=== PATIENT | male | born 1970 | race Hispanic/Latino ===

== ENCOUNTER 2019-06-15 20:20 | Emergency (ER) | payer OTHER ==
--- NOTE | 2019-06-15 21:58 | RAD ---
EXAM: CHEST ONE VIEW HISTORY: Cough and congestion for 2 days COMPARISON: 10/25/2015 FINDINGS: Single lead left subclavian AICD device remains in place. The cardiac silhouette remains mildly enlar ged. The pulmonary vasculature is within normal limits. The lungs are clear. The osseous structures are intact. IMPRESSION: 1. No acute cardiopulmonary process. 2. Cardiomegaly.
== END 2019-06-15 22:05 | disposition home or self-care (01) ==
LOC: ERS 20:20
DX: J06.9 Acute upper respiratory infection, unspecified (principal); E11.9 Type 2 diabetes mellitus without complications; I25.2 Old myocardial infarction; I11.0 Hypertensive heart disease with heart failure; I50.9 Heart failure, unspecified; Z87.891 Personal history of nicotine dependence; Z79.899 Other long term (current) drug therapy
CPT/HCPCS: 71045; 87804

== ENCOUNTER 2019-06-30 11:55 | Emergency (ER) | payer OTHER | END 2019-06-30 12:33 | disposition home or self-care (01) | LOC: ERS 11:55 | DX: K02.9 Dental caries, unspecified (principal); E11.9 Type 2 diabetes mellitus without complications; E78.00 Pure hypercholesterolemia, unspecified; I25.2 Old myocardial infarction; I11.0 Hypertensive heart disease with heart failure; I50.9 Heart failure, unspecified; I25.10 Atherosclerotic heart disease of native coronary artery without angina pectoris; F41.9 Anxiety disorder, unspecified; F32.9 Major depressive disorder, single episode, unspecified | CPT/HCPCS: 99282 ==

== ENCOUNTER 2019-12-12 09:30 | Emergency (ER) | payer OTHER ==
[2019-12-12] MEDS ORDERED: Cyclobenzaprine 10 MG TAB ONE (10:45)
[2019-12-12] MEDS ORDERED: HYDROcodone/Acetaminophen 5/325 mg Tablet ONE (10:45)
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
== END 2019-12-12 11:18 | disposition home or self-care (01) ==
LOC: ERS 09:30
DX: S39.012A Strain of muscle, fascia and tendon of lower back, initial encounter (principal); I25.10 Atherosclerotic heart disease of native coronary artery without angina pectoris; I11.0 Hypertensive heart disease with heart failure; I50.9 Heart failure, unspecified; E11.9 Type 2 diabetes mellitus without complications; F41.9 Anxiety disorder, unspecified; F32.9 Major depressive disorder, single episode, unspecified; I25.2 Old myocardial infarction; E78.5 Hyperlipidemia, unspecified; V89.2XXA Person injured in unspecified motor-vehicle accident, traffic, initial encounter
CPT/HCPCS: 72100

== ENCOUNTER 2020-01-05 12:02 | Emergency (ER) | payer OTHER | END 2020-01-05 12:35 | disposition home or self-care (01) | LOC: ERS 12:02 | DX: K08.89 Other specified disorders of teeth and supporting structures (principal); I25.10 Atherosclerotic heart disease of native coronary artery without angina pectoris; I11.0 Hypertensive heart disease with heart failure; I50.9 Heart failure, unspecified; I25.2 Old myocardial infarction; E11.9 Type 2 diabetes mellitus without complications; E78.5 Hyperlipidemia, unspecified; F41.9 Anxiety disorder, unspecified; F32.9 Major depressive disorder, single episode, unspecified | CPT/HCPCS: 99282 ==

== ENCOUNTER 2020-03-07 15:11 | Emergency (ER) | payer OTHER ==
--- NOTE | 2020-03-07 16:27 | RAD ---
CHEST ONE VIEW PORTABLE: 03/07/20 HISTORY: Cough. COMPARISON: 06/15/19. FINDINGS: Left ICD. Heart size is upper range of normal. Mild bilateral pleural thickening. No confluent pneumo daniel, overt edema or pleural effusion. IMPRESSION: No significant acute intrathoracic disease. Stable exam. POS: RRE
[2020-03-07 16:33] LABS: #Basophils 0.1 thou/uL (0.0-0.2); #Lymphocytes 1.3 thou/uL (1.20-3.40); #Monocytes 0.3 thou/uL (0.11-0.59); #Neutrophils 4.3 thou/uL (1.40-6.50); %Eosinophils 0.7 % (0.0-10.0); %Lymphocytes 21.2 % (21.0-51.0); %Monocytes 5.2 % (0.0-10.0); Mean Corpuscular HGB CONC 33.4 g/dL (32.0-36.0); Mean Corpuscular Hemoglobin 30.9 pg (27.0-31.0); Mean Corpuscular Volume 92.6 fL (78.0-98.0); Mean Platelet Volume 9.3 fL (7.4-10.4); Platelet Count 166 thou/uL (130-400); RBC Distribution Width 12.5 % (11.5-14.5); Red Blood Cell (RBC) Count 4.85 mill/uL (4.70-6.10)
[2020-03-07 16:55] LABS: ALT (SGPT) 22 U/L (8-55); AST (SGOT) 19 U/L (5-34); Albumin 3.4 g/dL (3.5-5.0); Alkaline Phosphatase 71 U/L (40-110); Anion Gap 12 mmol/L (10-20); BUN (Urea Nitrogen) 14 mg/dL (8.9-20.6); Bilirubin, Total 0.3 mg/dL (0.2-1.2); Calc. Creatinine Clearance 0 mL/min (70-130); Calcium 8.1 mg/dL (7.8-10.44); Carbon Dioxide 25 mmol/L (22-29); Chloride 102 mmol/L (98-107); Estimated GFR-MDRD 48; Globulin 2.9 g/dL (2.4-3.5); Glucose 515 mg/dL (70-105); Protein, Total 6.3 g/dL (6.0-8.3); Sodium 135 mmol/L (136-145)
[2020-03-08 12:17] LABS: SARS-CoV-2 MS2 Positive; SARS-CoV-2 N Gene Negative; SARS-CoV-2 S Gene Negative; SARS-CoV-2 by NAA Not Detected (NotDetected); SARS-CoV-2 orf1ab Negative
--- NOTE | 2020-03-10 13:41 | EKG ---
Test Reason : BODY ACHES Blood Pressure : / mmHG Vent. Rate : 069 BPM Atrial Rate : 069 BPM P-R Int : 168 ms QRS Dur : 098 ms QT Int : 450 ms P-R-T Axes : 036 -40 100 degrees QTc Int : 482 ms Normal sinus rhythm Possible Left atrial enlargement Left axis deviation Inferior infarct , age undetermined Anterior infarct , age undetermined Abnormal ECG Confirmed by TAYLOR NORRIS DO ([id number]), avid editor JEREMIAH HAMLIN ([id number] on 03/10/2020 1:41:02 PM Referred By: JR Confirmed By:TAYLOR NORRIS DO
== END 2020-03-07 18:43 | disposition home or self-care (01) ==
LOC: ERS 15:11
DX: B34.9 Viral infection, unspecified (principal); I11.0 Hypertensive heart disease with heart failure; I50.9 Heart failure, unspecified; I25.10 Atherosclerotic heart disease of native coronary artery without angina pectoris; I25.2 Old myocardial infarction; E78.5 Hyperlipidemia, unspecified; I10 Essential (primary) hypertension; F41.9 Anxiety disorder, unspecified; F32.9 Major depressive disorder, single episode, unspecified
CPT/HCPCS: 36415; 71045; 80053; 83880; 84484; 85025; 87635; 93005; U0003

== ENCOUNTER 2020-05-08 02:22 | Observation (INO) | payer OTHER ==
[2020-05-08 02:45] LABS: #Lymphocytes 0.6 thou/uL (1.20-3.40); #Monocytes 0.4 thou/uL (0.11-0.59); #Neutrophils 7.9 thou/uL (1.40-6.50); %Basophils 0.1 % (0.0-1.0); %Eosinophils 0.4 % (0.0-10.0); %Monocytes 4.8 % (0.0-10.0); %Neutrophils 87.8 % (42.0-75.0); Hemoglobin 14.9 g/dL (14.0-18.0); Mean Corpuscular HGB CONC 33.2 g/dL (32.0-36.0); Mean Corpuscular Hemoglobin 31.2 pg (27.0-31.0); Mean Corpuscular Volume 94.2 fL (78.0-98.0); Mean Platelet Volume 8.8 fL (7.4-10.4); Platelet Count 158 thou/uL (130-400); RBC Distribution Width 12.6 % (11.5-14.5); Red Blood Cell (RBC) Count 4.76 mill/uL (4.70-6.10)
[2020-05-08] MEDS ORDERED: Aspirin Chewable 81 MG TAB ONE (03:05)
[2020-05-08 03:12] LABS: ALT (SGPT) 19 U/L (8-55); AST (SGOT) 19 U/L (5-34); Albumin 3.3 g/dL (3.5-5.0); Alkaline Phosphatase 84 U/L (40-110); Anion Gap 14 mmol/L (10-20); BUN (Urea Nitrogen) 12 mg/dL (8.9-20.6); Bilirubin, Total 0.6 mg/dL (0.2-1.2); Calc. Creatinine Clearance 0 mL/min (70-130); Calcium 8.7 mg/dL (7.8-10.44); Carbon Dioxide 25 mmol/L (22-29); Chloride 100 mmol/L (98-107); Estimated GFR-MDRD 53; Globulin 3.5 g/dL (2.4-3.5); Glucose 491 mg/dL (70-105); Potassium 4.1 mmol/L (3.5-5.1); Protein, Total 6.8 g/dL (6.0-8.3); Sodium 135 mmol/L (136-145)
[2020-05-08] MEDS ORDERED: Nitroglycerin 0.4 MG TAB (25 Tab Bottle) SL PRN (05:57)
[2020-05-08 05:58] LABS: CKMB 1.6 ng/mL (0-6.6)
[2020-05-08] MEDS ORDERED: Dextrose 5% in Water 1,000 ML IV PRN (06:02)
[2020-05-08] MEDS ORDERED: HumaLOG 300 UNITS/3 ML VIAL SC PRN (06:02)
[2020-05-08] MEDS ORDERED: Dextrose 50% Abboject 50 ML SYRINGE SLOW IVP PRN (06:02)
--- NOTE | 2020-05-08 06:19 | PDOC.BPN ---
- Brief Progress Note [id number] HP
[2020-05-08 06:48] LABS: SARS-CoV-2 NAA Rapid Test Not Detected (NotDetected)
--- NOTE | 2020-05-08 06:51 | HP ---
CHIEF COMPLAINT: Chest pain. HISTORY OF PRESENT ILLNESS: Mr. Garay is a 49-year-old male with past medical history of coronary artery disease, cardiac stent, diabetes mellitus type 2, hypertension, congestive heart failure, AICD, among others, presents to the emergency room with chest pain, shortness of breath, generalized body aches, and subjective fever. The patient states that the symptoms started 2 to 3 days ago. Denies any exposure to COVID. He describes the chest pain as achy. He took [id number] medications without any relief. The patient has a history of heart failure, stents with pacemaker. He did not check his temperatures, but he felt like he has fevers. Denies abdominal pain. Denies diarrhea or urinary symptoms. He denies any worsening leg edema. He takes Lasix at home. He is diabetic, but he has not been compliant with his insulin over the last few days. In the emergency room, his blood sugar was elevated more than 400. Initial troponin 0.02, repeat troponin 0.038, BNP is elevated at 883. COVID-19 test is done, results are pending. The patient is being admitted to the hospital for further management. PAST MEDICAL HISTORY: As mentioned above in history of present illness. PAST SURGICAL HISTORY: 1. Left toe amputation. 2. Defibrillator/pacemaker. 3. Heart cath/cardiac stents. FAMILY HISTORY: Lives with family at home. Denies alcohol drinking. Denies drug use. Denies smoking. HOME MEDICATIONS: See home medication reconciliation form for updated medications. ALLERGIES: NO KNOWN ALLERGIES. REVIEW OF SYSTEMS: Review of 14 systems negative except what is mentioned in history of present illness. PHYSICAL EXAMINATION: GENERAL: The patient is awake, alert, not in acute distress. VITAL SIGNS: Blood pressure 110/86, pulse is 89, respiratory rate is 20, oxygen saturation 97%, temperature 99.8. HEAD AND NECK: Normocephalic, atraumatic. NECK: Supple. No JVD. CHEST: A few bibasilar crackles. HEART: Distant heart sounds. ABDOMEN: Soft, nontender. Bowel sounds present. NEUROLOGIC: Awake, alert, oriented. PSYCH: Unable to assess. EXTREMITIES: No clubbing. No cyanosis. GENITOURINARY: No suprapubic tenderness. No flank tenderness. SKIN: No apparent rash. LABORATORY DATA: As mentioned above in history of present illness. BNP is elevated. ASSESSMENT: 1. Acute chest pain, rule out acute coronary syndrome. 2. Congestive heart failure, chronic. 3. Coronary artery disease, history of myocardial infarction, history of cardiac stents. 4. Pacemaker/defibrillator. 5. Subjective fever and chills. 6. Hypertension. 7. Hyperlipidemia. 8. Diabetes mellitus with hyperglycemia. PLAN: 1. Admit. 2. Telemetry monitoring. 3. Aspirin. 4. Serial troponins. 5. Give the patient 1 dose of Lovenox now, reassess. 6. We will consult the patient's automatic thread winder for evaluation and further recommendations. 7. Monitor and control blood glucose. 8. Isolation precautions for now. 9. Follow COVID-19 test results. 10. Reconcile home medications. 11. Monitor and control blood pressure. 12. DVT prophylaxis as appropriate. 13. Expected length of stay at least 1 midnight if the patient is stable and further workup negative. Job ID: [id number]
--- NOTE | 2020-05-08 07:46 | RAD ---
XR Chest 1 View Portable History: Covid pneumonia Comparison: Radiograph March 07, 2020 Findings: Heart size mildly enlarged. Faint perihilar opacities. No pneumothorax. No effusion. Single -lead defibrillator tip projects over the right ventricular apex. Impression: Perihilar airspace opacities can be seen with Covid-19 pneumonia.
[2020-05-08] MEDS ORDERED: Enoxaparin Sodium 100 MG/ML SYRINGE SC SCH (08:30)
[2020-05-08 08:35] LABS: Troponin I 0.031 ng/mL (< 0.028)
[2020-05-08] MEDS ORDERED: Lisinopril 2.5 MG TAB PO SCH (09:00)
[2020-05-08] MEDS ORDERED: Furosemide 80 MG TAB PO SCH (09:00)
[2020-05-08] MEDS ORDERED: Clopidogrel Bisulfate 75 MG TAB ONE (09:35)
[2020-05-08] MEDS ORDERED: Famotidine 20 MG TAB ONE (09:35)
[2020-05-08] MEDS ORDERED: Aspirin 325 MG TAB ONE (09:35)
[2020-05-08] MEDS ORDERED: Furosemide 40 MG TAB ONE (09:35)
[2020-05-08] MEDS ORDERED: Enoxaparin Sodium 100 MG/ML SYRINGE ONE (09:39)
[2020-05-08] MEDS ORDERED: Famotidine/PF 20 mg/2ml Vial ONE (09:39)
[2020-05-08] MEDS: Potassium Chloride 10 MEQ TAB PO SCH (09:46)
[2020-05-08] MEDS: Famotidine/PF 20 mg/2ml Vial SLOW IVP SCH ×2 (09:46→20:37)
[2020-05-08] MEDS: Clopidogrel Bisulfate 75 MG TAB PO SCH (09:46)
[2020-05-08] MEDS: Atorvastatin Calcium 40 MG TAB PO SCH (09:46)
[2020-05-08] MEDS: Aspirin 325 mg Enteric Coated Tablet PO SCH (09:46)
[2020-05-08] MEDS: Amiodarone 200 MG TAB PO SCH (09:46)
[2020-05-08] MEDS: Acetaminophen 325 MG TAB PO PRN ×3 (09:50→20:57)
[2020-05-08] MEDS ORDERED: Acetaminophen 325 MG TAB ONE (09:50)
[2020-05-08] MEDS: HumuLIN 70/30 (300 UNITS/3 ML VIAL) SC SCH ×2 (09:58→16:35)
[2020-05-08] MEDS: Carvedilol 3.125 MG TAB PO SCH ×2 (09:59→16:35)
[2020-05-08 11:56] LABS: Troponin I 0.042 ng/mL (< 0.028)
[2020-05-08] MEDS: Furosemide 100 MG/10 ML VIAL SLOW IVP SCH (13:53)
[2020-05-08 14:25] VITALS: BMI 34.8
[2020-05-08 22:29] LABS: SARS-CoV-2 MS2 Positive; SARS-CoV-2 N Gene Negative; SARS-CoV-2 S Gene Negative; SARS-CoV-2 by NAA Not Detected (NotDetected); SARS-CoV-2 orf1ab Negative
--- NOTE | 2020-05-09 00:15 | CON ---
DATE OF CONSULTATION: HISTORY OF PRESENT ILLNESS: Patient is a 49-year-old gentleman, who presents with fever, chills, and dyspnea. The patient has a long history of coronary artery disease. He has previously undergone PCI and stent placement into the left circumflex artery. He also has a history of an automatic implantable cardiac defibrillator. The patient was in his usual state of health when he started feeling fevers and chills for several days. He denied any productive sputum. Patient also reports having myalgias. PAST MEDICAL HISTORY: 1. Cardiomyopathy. 2. Coronary artery disease. 3. Hypertension. 4. Peripheral vascular disease. PAST SURGICAL HISTORY: Toe amputation. MEDICATIONS: See nursing list. ALLERGIES: NO KNOWN DRUG ALLERGIES. PHYSICAL EXAMINATION: Deferred due to probable COVID. Blood pressure 157/91 and temperature was 102.1. LABORATORY RESULTS: Sodium 135, potassium 4.1, chloride 100, bicarbonate 25, BUN 12, creatinine 1.4, and glucose 491. White blood cell count 9.0, hemoglobin 14.9, hematocrit 44.8, and platelets 158. Chest x-ray revealed perihilar airspace opacities suggestive of COVID pneumonia. IMPRESSION: 1. Possible COVID pneumonia. 2. Congestive heart failure. 3. History of ischemic cardiomyopathy. 4. Ischemic coronary artery disease. 5. Diabetes mellitus. 6. Dyslipidemia. This gentleman presents with congestive heart failure and possible COVID pneumonia. We will follow this patient with you through his hospitalization. Job ID: [id number] [facility]
[2020-05-09 04:31] LABS: #Monocytes 0.7 thou/uL (0.11-0.59); #Neutrophils 6.4 thou/uL (1.40-6.50); %Basophils 0.5 % (0.0-1.0); %Eosinophils 0.6 % (0.0-10.0); %Lymphocytes 11.7 % (21.0-51.0); %Neutrophils 78.2 % (42.0-75.0); Hemoglobin 14.6 g/dL (14.0-18.0); Mean Corpuscular HGB CONC 32.6 g/dL (32.0-36.0); Mean Corpuscular Hemoglobin 30.8 pg (27.0-31.0); Mean Corpuscular Volume 94.5 fL (78.0-98.0); Mean Platelet Volume 8.9 fL (7.4-10.4); Platelet Count 158 thou/uL (130-400); RBC Distribution Width 12.4 % (11.5-14.5); Red Blood Cell (RBC) Count 4.74 mill/uL (4.70-6.10); White Blood Cell (WBC) Count 8.1 thou/uL (4.8-10.8)
[2020-05-09 04:53] LABS: Anion Gap 13 mmol/L (10-20); BUN (Urea Nitrogen) 17 mg/dL (8.9-20.6); Calc. Creatinine Clearance 87 mL/min (70-130); Calcium 8.6 mg/dL (7.8-10.44); Carbon Dioxide 28 mmol/L (22-29); Chloride 99 mmol/L (98-107); Estimated GFR-MDRD 55; Glucose 149 mg/dL (70-105); Potassium 4.2 mmol/L (3.5-5.1); Sodium 136 mmol/L (136-145)
[2020-05-09] MEDS: Acetaminophen 325 MG TAB PO PRN ×2 (05:45→09:21)
[2020-05-09] MEDS: Furosemide 100 MG/10 ML VIAL SLOW IVP SCH (06:25)
[2020-05-09 07:06] VITALS: TEMP 98.1
[2020-05-09 07:18] VITALS: BP 140/93
--- NOTE | 2020-05-09 08:01 | PDOC.HOSPP ---
- Subjective Encounter Date: 05/09/20 Encounter Time: 09:30 Subjective: Patient feeling well. No more high fevers. No cough/SOB/chest pain. Body aches day of admission but none now. Ready to go home. Per nursing Dr. Navarro has cleared to go home as well. - Objective Vital Signs & Weight: Vital Signs (12 hours) Temp Pulse Resp BP BP Pulse Ox 05/09/20 07:17 98.1 F 86 17 140/93 H 96 05/09/20 06:15 98.1 F 05/09/20 05:45 100.1 F H 71 20 158/77 H 05/09/20 05:40 100.1 F H 71 20 158/77 H 97 05/09/20 04:00 97 05/09/20 00:20 98.9 F 67 20 136/82 97 05/09/20 00:00 97 05/08/20 20:00 99.8 F H 85 21 H 159/95 H 98 Weight Weight 207 lb 3.2 oz I&O: 05/08/20 05/09/20 05/10/20 06:59 06:59 06:59 Intake Total 1220 Output Total 1225 Balance -5 Result Diagrams: 05/09/20 04:09 05/09/20 04:09 Additional Labs: Accuchecks 05/09/20 05/08/20 05/08/20 05:43 20:12 16:44 POC Glucose 144 H 136 H 258 H 05/08/20 05/08/20 12:46 09:43 POC Glucose 267 H 324 H Hospitalist ROS - Review of Systems Constitutional: denies: fever, chills Respiratory: denies: cough, shortness of breath Cardiovascular: denies: chest pain, palpitations, edema Gastrointestinal: denies: nausea, vomiting, abdominal pain - Medication Medications: Active Medications Generic Name Dose Route Start Last Admin Trade Name Freq PRN Reason Stop Dose Admin Acetaminophen 650 mg 05/08/20 05:57 05/09/20 05:45 Acetaminophen 325 Mg Tab PO 650 mg Q4H PRN Administration Headache/Fever/Mild Pain (1-3) Amiodarone HCl 200 mg 05/08/20 09:00 05/08/20 09:46 Amiodarone 200 Mg Tab PO 200 mg QAM BRIDGET Administration Aspirin 325 mg 05/08/20 09:00 05/08/20 09:46 Aspirin 325 Mg Enteric Coated Tablet PO 325 mg DAILY BRIDGET Administration Atorvastatin Calcium 40 mg 05/08/20 09:00 05/08/20 09:46 Atorvastatin Calcium 40 Mg Tab PO 40 mg DAILY BRIDGET Administration Carvedilol 3.125 mg 05/08/20 08:00 05/08/20 16:35 Carvedilol 3.125 Mg Tab PO 3.125 mg BID-WM BRIDGET Administration Clopidogrel Bisulfate 75 mg 05/08/20 09:00 05/08/20 09:46 Clopidogrel Bisulfate 75 Mg Tab PO 75 mg DAILY BRIDGET Administration Famotidine 20 mg 05/08/20 09:00 05/08/20 20:37 Famotidine/Pf 20 Mg/2ml Vial SLOW IVP 20 mg Q12HR BRIDGET Administration Furosemide 80 mg 05/08/20 14:00 05/09/20 06:25 Furosemide 100 Mg/10 Ml Vial SLOW IVP 80 mg 0600,1400 BRIDGET Administration Insulin Human Isoph/Insulin Regular 25 units 05/08/20 07:30 05/08/20 16:35 Humulin 70/30 (300 Units/3 Ml Vial) SC 25 unit BID-AC BRIDGET Administration Lisinopril 2.5 mg 05/08/20 09:00 05/08/20 09:47 Lisinopril 2.5 Mg Tab PO 2.5 mg DAILY BRIDGET Administration Potassium Chloride 10 meq 05/08/20 08:00 05/08/20 09:46 Potassium Chloride 10 Meq Tab PO 10 meq QAM-WM BRIDGET Administration Sodium Chloride 10 ml 05/08/20 09:00 05/08/20 20:38 Flush - Normal Saline 10 Ml Syringe IVF 10 ml Q12HR BRIDGET Administration Sodium Chloride 10 ml 05/08/20 06:15 05/09/20 06:25 Flush - Normal Saline 10 Ml Syringe IVF 10 ml PRN PRN Administration Saline Flush - Exam General Appearance: NAD, awake alert ENT: moist mucosa Heart: RRR, no murmur, no gallops, no rubs Respiratory: CTAB, no wheezes, no rales, no ronchi Gastrointestinal: soft, non-tender, non-distended, normal bowel sounds Psychiatric: normal affect, normal behavior, A&O x 3 Hosp A/P (1) Acute on chronic systolic CHF (congestive heart failure) Code(s): I50.23 - ACUTE ON CHRONIC SYSTOLIC (CONGESTIVE) HEART FAILURE Status: Acute (2) Chest pain Code(s): R07.9 - CHEST PAIN, UNSPECIFIED Status: Resolved (3) Fever Code(s): R50.9 - FEVER, UNSPECIFIED Status: Resolved (4) Type II diabetes mellitus, uncontrolled Code(s): E11.65 - TYPE 2 DIABETES MELLITUS WITH HYPERGLYCEMIA Status: Chronic (5) DM type 2 (diabetes mellitus, type 2) Status: Chronic (6) HTN (hypertension) Code(s): I10 - ESSENTIAL (PRIMARY) HYPERTENSION Status: Chronic Qualifiers: Hypertension type: essential hypertension Qualified Code(s): I10 - Essential (primary) hypertension (7) Obesity Code(s): E66.9 - OBESITY, UNSPECIFIED Status: Chronic Qualifiers: Obesity type: due to excess calories (8) Tobacco dependence Code(s): F17.200 - NICOTINE DEPENDENCE, UNSPECIFIED, UNCOMPLICATED Status: Chronic - Plan Patient Covid-19 negative times 2. No leukocytosis. Suspect other viral infecti on as source of chest pain. Appreciate Cardiology assistance. Can transition back to oral meds and d/c home. F/u PCP in one week.
[2020-05-09] MEDS: HumuLIN 70/30 (300 UNITS/3 ML VIAL) SC SCH (08:53)
[2020-05-09] MEDS ORDERED: PARoxetine 20 MG TAB PO SCH (09:00)
[2020-05-09] MEDS ORDERED: FLU VACC QS2020-21(6MOS UP)/PF 60 MCG/0.5 ML SYRINGE IM ONE (09:00)
[2020-05-09] MEDS ORDERED: busPIRone HCl 10 MG TAB PO SCH (09:00)
[2020-05-09] MEDS: Famotidine/PF 20 mg/2ml Vial SLOW IVP SCH (09:14)
[2020-05-09] MEDS: Amiodarone 200 MG TAB PO SCH (09:16)
[2020-05-09] MEDS: Atorvastatin Calcium 40 MG TAB PO SCH (09:16)
[2020-05-09] MEDS: Aspirin 325 mg Enteric Coated Tablet PO SCH (09:16)
[2020-05-09] MEDS: Carvedilol 3.125 MG TAB PO SCH (09:16)
[2020-05-09] MEDS: Clopidogrel Bisulfate 75 MG TAB PO SCH (09:16)
[2020-05-09] MEDS: Potassium Chloride 10 MEQ TAB PO SCH (09:16)
--- NOTE | 2020-05-09 11:21 | DIS ---
DATE OF ADMISSION: 05/08/2020 DATE OF DISCHARGE: 05/09/2020 PRIMARY CARE PHYSICIAN: Karin Donnelly NP REASON FOR ADMISSION: Chest pain and fever. DIAGNOSES AT DISCHARGE: 1. Chest pain, resolved. 2. [id number] systolic congestive heart failure. 3. Fever, likely viral syndrome. 4. Type 2 diabetes mellitus. 5. Hypertension. 6. Obesity. 7. Tobacco dependence. PROCEDURES: None. CONSULTATIONS: Cardiology, Dr. Navarro. PERTINENT LABORATORY DATA: Negative COVID test x2. Both rapid antigen and a PCR test were negative. SUMMARY OF HOSPITAL COURSE: This is a 49-year-old male with a history of coronary artery disease, previous stents, AICD, and congestive heart failure, who came in with chest pain, shortness of breath, generalized body aches, and subjective fever. He did spike a fever in the emergency room and got up as high as 102 in the hospital. The patient had negative COVID test done x2. He had a negative chest x-ray. No leukocytosis. His symptoms resolved during hospital course. The patient did have indeterminate troponins and elevated brain natriuretic peptide. He was put on IV Lasix. Dr. Navarro was consulted and recommended to continue medical management. The patient did well during hospital stay and was breathing well without any chest pain without any further fevers at the time of discharge, and thus is being discharged home. DISCHARGE MANAGEMENT: Discharged home. ACTIVITY: As tolerated. DIET: Diabetic diet. FOLLOWUP: With Dr. Chew as directed and with primary care physician, Karin Donnelly NP in 7 days. DISCHARGE MEDICATIONS: 1. Amiodarone 200 mg daily. 2. Atorvastatin 40 mg daily. 3. BuSpar 10 mg twice a day. 4. Carvedilol 3.125 mg twice a day. 5. Plavix 75 mg daily. 6. Paroxetine 10 mg daily. 7. Potassium chloride 10 mEq daily. 8. Entresto 24/ one tablet twice a day. 9. Furosemide 40 mg twice a day. 10. Lantus 10 units subcutaneously at bedtime. 11. Lisinopril 2.5 mg daily. 12. Metformin 1000 mg twice a day. 13. Sildenafil as needed. Job ID: [id number]
--- NOTE | 2020-05-12 16:17 | EKG ---
Test Reason : Blood Pressure : / mmHG Vent. Rate : 094 BPM Atrial Rate : 094 BPM P-R Int : 166 ms QRS Dur : 108 ms QT Int : 374 ms P-R-T Axes : 039 -31 084 degrees QTc Int : 467 ms Sinus rhythm with frequent Premature ventricular complexes Possible Left atrial enlargement Left axis deviation Inferior infarct , age undetermined Anterior infarct , age undetermined Abnormal ECG Confirmed by MANSI KINGSTON M.D. ([id number]), senior technical editor JEREMIAH HAMLIN ([id number]) on 05/12/2020 4:17:06 PM Referred By: Confirmed By:MANSI KINGSTON M.D.
== END 2020-05-09 10:28 | disposition home or self-care (01) ==
LOC: ERS 02:22 → ERHOLD 06:37 → 2NO 13:27
PROVIDERS: ADMIT Internal Medicine; ATTEND Emergency Medicine
DX: R07.9 Chest pain, unspecified (principal); I11.0 Hypertensive heart disease with heart failure; I50.23 Acute on chronic systolic (congestive) heart failure; R50.9 Fever, unspecified; E11.65 Type 2 diabetes mellitus with hyperglycemia; F17.200 Nicotine dependence, unspecified, uncomplicated; I25.10 Atherosclerotic heart disease of native coronary artery without angina pectoris; I25.2 Old myocardial infarction; E78.5 Hyperlipidemia, unspecified; F41.9 Anxiety disorder, unspecified; F32.9 Major depressive disorder, single episode, unspecified; I25.5 Ischemic cardiomyopathy; E66.09 Other obesity due to excess calories; Z68.34 Body mass index [BMI] 34.0-34.9, adult; Z79.02 Long term (current) use of antithrombotics/antiplatelets; Z79.4 Long term (current) use of insulin; Z79.899 Other long term (current) drug therapy; Z91.14 Patient's other noncompliance with medication regimen; Z95.5 Presence of coronary angioplasty implant and graft; Z95.810 Presence of automatic (implantable) cardiac defibrillator; Z20.828 Contact with and (suspected) exposure to other viral communicable diseases
CPT/HCPCS: 36415; 36416; 71045; 80048; 80053; 82553; 83880; 84484; 85025; 87635; 87804; 90471; 90662; 93005; 94760; 96372; 96374; 96375; 96376; G0008; G0378; J1650; J1815; J1940; S0028; U0002; U0003

== ENCOUNTER 2020-07-24 17:27 | Emergency (ER) | payer OTHER | END 2020-07-24 19:05 | disposition home or self-care (01) | LOC: ERS 17:27 | DX: L03.011 Cellulitis of right finger (principal); E11.9 Type 2 diabetes mellitus without complications; I11.0 Hypertensive heart disease with heart failure; I50.9 Heart failure, unspecified; I25.2 Old myocardial infarction; E78.5 Hyperlipidemia, unspecified | CPT/HCPCS: 99283 ==

== ENCOUNTER 2020-10-16 17:27 | Emergency (ER) | payer OTHER ==
[2020-10-16] MEDS ORDERED: Cyclobenzaprine 10 MG TAB ONE (20:35)
[2020-10-16] MEDS ORDERED: Ketorolac Tromethamine 30 MG/ML VIAL ONE (20:39)
[2020-10-16 20:41] LABS: #Eosinphils 0.1 thou/uL (0.0-0.7); #Lymphocytes 1.7 thou/uL (1.20-3.40); #Monocytes 0.4 thou/uL (0.11-0.59); #Neutrophils 4.4 thou/uL (1.40-6.50); %Basophils 0.5 % (0.0-1.0); %Eosinophils 1.4 % (0.0-10.0); %Lymphocytes 25.4 % (21.0-51.0); %Monocytes 6.4 % (0.0-10.0); %Neutrophils 66.3 % (42.0-75.0); Hemoglobin 14.7 g/dL (14.0-18.0); Mean Corpuscular HGB CONC 33.1 g/dL (32.0-36.0); Mean Corpuscular Hemoglobin 30.1 pg (27.0-31.0); Mean Corpuscular Volume 90.9 fL (78.0-98.0); Platelet Count 216 thou/uL (130-400); RBC Distribution Width 13.1 % (11.5-14.5); Red Blood Cell (RBC) Count 4.88 mill/uL (4.70-6.10); White Blood Cell (WBC) Count 6.6 thou/uL (4.8-10.8)
[2020-10-16 21:19] LABS: ALT (SGPT) 21 U/L (8-55); AST (SGOT) 34 U/L (5-34); Albumin 3.5 g/dL (3.5-5.0); Alkaline Phosphatase 62 U/L (40-110); Anion Gap 14 mmol/L (10-20); BUN (Urea Nitrogen) 15 mg/dL (8.9-20.6); Bilirubin, Total 0.3 mg/dL (0.2-1.2); Calc. Creatinine Clearance 0 mL/min (70-130); Calcium 8.8 mg/dL (7.8-10.44); Carbon Dioxide 25 mmol/L (22-29); Chloride 105 mmol/L (98-107); Glucose 157 mg/dL (70-105); Potassium 3.9 mmol/L (3.5-5.1); Protein, Total 6.5 g/dL (6.0-8.3); Sodium 140 mmol/L (136-145)
[2020-10-16 21:40] LABS: CKMB 11.6 ng/mL (0-6.6)
== END 2020-10-16 22:48 | disposition left against medical advice (07) ==
LOC: ERS 17:27
DX: E11.65 Type 2 diabetes mellitus with hyperglycemia (principal); R79.89 Other specified abnormal findings of blood chemistry; M54.2 Cervicalgia; I25.10 Atherosclerotic heart disease of native coronary artery without angina pectoris; I11.0 Hypertensive heart disease with heart failure; I50.9 Heart failure, unspecified; E78.5 Hyperlipidemia, unspecified; I25.2 Old myocardial infarction
CPT/HCPCS: 36415; 36416; 80053; 82553; 84484; 85025; 93005; 96372; J1885

== ENCOUNTER 2021-04-07 20:11 | Emergency (ER) | payer OTHER ==
[2021-04-07 23:29] LABS: #Eosinphils 0.1 thou/uL (0.0-0.7); #Lymphocytes 1.6 thou/uL (1.20-3.40); #Monocytes 0.5 thou/uL (0.11-0.59); #Neutrophils 7.4 thou/uL (1.40-6.50); %Basophils 0.3 % (0.0-1.0); %Eosinophils 0.9 % (0.0-10.0); %Lymphocytes 16.5 % (21.0-51.0); %Neutrophils 77.1 % (42.0-75.0); Mean Corpuscular HGB CONC 34.6 g/dL (32.0-36.0); Mean Corpuscular Hemoglobin 31.3 pg (27.0-31.0); Mean Corpuscular Volume 90.5 fL (78.0-98.0); Mean Platelet Volume 8.1 fL (7.4-10.4); Platelet Count 227 thou/uL (130-400); RBC Distribution Width 12.7 % (11.5-14.5); Red Blood Cell (RBC) Count 5.12 mill/uL (4.70-6.10); White Blood Cell (WBC) Count 9.6 thou/uL (4.8-10.8)
[2021-04-07 23:47] LABS: ALT (SGPT) 20 U/L (8-55); AST (SGOT) 20 U/L (5-34); Alkaline Phosphatase 71 U/L (40-110); Anion Gap 14 mmol/L (10-20); BUN (Urea Nitrogen) 21 mg/dL (8.4-25.7); Bilirubin, Total 0.4 mg/dL (0.2-1.2); Calc. Creatinine Clearance 0 mL/min (70-130); Calcium 9.4 mg/dL (7.8-10.44); Carbon Dioxide 31 mmol/L (22-29); Chloride 99 mmol/L (98-107); Globulin 3.6 g/dL (2.4-3.5); Glucose 443 mg/dL (70-105); Potassium 4.5 mmol/L (3.5-5.1); Protein, Total 7.6 g/dL (6.0-8.3); Sodium 139 mmol/L (136-145)
[2021-04-08 00:08] LABS: CKMB 5.5 ng/mL (0-6.6)
[2021-04-08] MEDS ORDERED: Aspirin Chewable 81 MG TAB ONE (00:55)
[2021-04-08] MEDS ORDERED: diphenhydrAMINE 25 MG CAP ONE (00:55)
== END 2021-04-08 01:35 | disposition left against medical advice (07) ==
LOC: ERS 20:11
DX: I13.0 Hypertensive heart and chronic kidney disease with heart failure and stage 1 through stage 4 chronic kidney disease, or unspecified chronic kidney disease (principal); R07.89 Other chest pain; E11.22 Type 2 diabetes mellitus with diabetic chronic kidney disease; N18.9 Chronic kidney disease, unspecified; I50.9 Heart failure, unspecified; I25.2 Old myocardial infarction; I25.10 Atherosclerotic heart disease of native coronary artery without angina pectoris; E78.5 Hyperlipidemia, unspecified; E78.00 Pure hypercholesterolemia, unspecified; R79.89 Other specified abnormal findings of blood chemistry
CPT/HCPCS: 36415; 71045; 80053; 82553; 84484; 85025; 93005

== ENCOUNTER 2021-04-11 11:53 | Observation (INO) | payer OTHER ==
[~2021-04-11 11:53] MED LIST: Iopamidol-370 76% 500 ML 1 ML ONE
[2021-04-11 12:33] LABS: #Eosinphils 0.1 thou/uL (0.0-0.7); #Lymphocytes 1.2 thou/uL (1.20-3.40); #Monocytes 0.3 thou/uL (0.11-0.59); #Neutrophils 4.4 thou/uL (1.40-6.50); %Basophils 0.5 % (0.0-1.0); %Eosinophils 1.6 % (0.0-10.0); %Lymphocytes 19.9 % (21.0-51.0); %Monocytes 5.3 % (0.0-10.0); %Neutrophils 72.8 % (42.0-75.0); Hemoglobin 16.3 g/dL (14.0-18.0); Mean Corpuscular HGB CONC 34.6 g/dL (32.0-36.0); Mean Corpuscular Hemoglobin 31.3 pg (27.0-31.0); Mean Corpuscular Volume 90.4 fL (78.0-98.0); Mean Platelet Volume 8.2 fL (7.4-10.4); Platelet Count 219 thou/uL (130-400); RBC Distribution Width 12.8 % (11.5-14.5); Red Blood Cell (RBC) Count 5.23 mill/uL (4.70-6.10)
[2021-04-11] MEDS ORDERED: Aspirin Chewable 81 MG TAB ONE (12:36)
[2021-04-11] MEDS ORDERED: Nitroglycerin 0.4 MG TAB 1 EACH ONE (12:36)
[2021-04-11 12:57] LABS: ALT (SGPT) 20 U/L (8-55); AST (SGOT) 22 U/L (5-34); Albumin 3.7 g/dL (3.5-5.0); Alkaline Phosphatase 71 U/L (40-110); Anion Gap 13 mmol/L (10-20); BUN (Urea Nitrogen) 17 mg/dL (8.4-25.7); Bilirubin, Total 0.4 mg/dL (0.2-1.2); Calc. Creatinine Clearance 0 mL/min (70-130); Calcium 9.3 mg/dL (7.8-10.44); Carbon Dioxide 31 mmol/L (22-29); Chloride 97 mmol/L (98-107); Globulin 3.4 g/dL (2.4-3.5); Glucose 387 mg/dL (70-105); Lipase 43 U/L (8-78); Potassium 4.6 mmol/L (3.5-5.1); Protein, Total 7.1 g/dL (6.0-8.3); Sodium 136 mmol/L (136-145)
[2021-04-11] MEDS ORDERED: Dextrose 50% Abboject 50 ML SYRINGE SLOW IVP PRN (15:36)
[2021-04-11] MEDS ORDERED: HumaLOG 300 UNITS/3 ML VIAL SC PRN (15:36)
[2021-04-11] MEDS ORDERED: Dextrose 5% in Water 1,000 ML IV PRN (15:36)
[2021-04-11] MEDS ORDERED: Acetaminophen 325 MG TAB PO PRN (15:36)
[2021-04-11 17:34] LABS: Troponin I 0.022 ng/mL (< 0.028)
[2021-04-11 17:35] LABS: Magnesium 1.9 mg/dL (1.6-2.6)
[2021-04-11] MEDS: HumaLOG 300 UNITS/3 ML VIAL SC PRN (18:19)
[2021-04-11] MEDS ORDERED: Magnesium 2 GM/50 ML 2 GM in Premix Bag 1 BAG IVPB SCH (18:30)
[2021-04-11] MEDS: Furosemide 40 MG TAB PO SCH (20:49)
[2021-04-11 20:56] LABS: Troponin I 0.017 ng/mL (< 0.028)
[2021-04-12 01:07] LABS: Amphetamine Not Detected (NotDetected); Barbiturates Screen Not Detected (NotDetected); Benzodiazepine Screen Not Detected (NotDetected); Cocaine Metabolite Screen Not Detected (NotDetected); Methadone Not Detected (NotDetected); Methamphetamine Not Detected (NotDetected); Opiate Screen Not Detected (NotDetected); Oxycodone Screen Not Detected (NotDetected); Phencyclidine (PCP) Not Detected (NotDetected); THC/Cannabinoid Screen Not Detected (NotDetected); Tricyclic Screen Not Detected (NotDetected)
[2021-04-12 06:19] LABS: #Basophils 0.1 thou/uL (0.0-0.2); #Eosinphils 0.1 thou/uL (0.0-0.7); #Lymphocytes 1.4 thou/uL (1.20-3.40); #Monocytes 0.5 thou/uL (0.11-0.59); #Neutrophils 4.3 thou/uL (1.40-6.50); %Basophils 1.1 % (0.0-1.0); %Eosinophils 2.1 % (0.0-10.0); %Lymphocytes 22.4 % (21.0-51.0); %Monocytes 7.1 % (0.0-10.0); %Neutrophils 67.3 % (42.0-75.0); Hemoglobin 15.7 g/dL (14.0-18.0); Mean Corpuscular HGB CONC 34.6 g/dL (32.0-36.0); Mean Corpuscular Hemoglobin 31.1 pg (27.0-31.0); Mean Platelet Volume 8.1 fL (7.4-10.4); Platelet Count 196 thou/uL (130-400); RBC Distribution Width 12.7 % (11.5-14.5); Red Blood Cell (RBC) Count 5.05 mill/uL (4.70-6.10); White Blood Cell (WBC) Count 6.4 thou/uL (4.8-10.8)
[2021-04-12 06:37] LABS: Anion Gap 13 mmol/L (10-20); BUN (Urea Nitrogen) 16 mg/dL (8.4-25.7); Calc. Creatinine Clearance 0 mL/min (70-130); Calcium 9.1 mg/dL (7.8-10.44); Carbon Dioxide 25 mmol/L (22-29); Cardiac Risk 5.9 (Less than 4.5); Chloride 103 mmol/L (98-107); Cholesterol 234 mg/dl (< 200 Desired); Glucose 290 mg/dL (70-105); HDL Cholesterol 40 mg/dL (>60 Neg Risk); LDL Cholesterol, Calculated 159 mg/dL; Potassium 4.1 mmol/L (3.5-5.1); Sodium 137 mmol/L (136-145); Triglycerides 176 mg/dL (Less than 150)
[2021-04-12] MEDS: HumaLOG 300 UNITS/3 ML VIAL SC PRN (06:39)
[2021-04-12] MEDS ORDERED: Potassium Chloride 10 MEQ TAB PO SCH (08:00)
[2021-04-12] MEDS: Furosemide 40 MG TAB PO SCH (08:35)
[2021-04-12] MEDS ORDERED: Clopidogrel Bisulfate 75 MG TAB PO SCH (09:00)
[2021-04-12] MEDS ORDERED: Amiodarone 200 MG TAB PO SCH (09:00)
[2021-04-12] MEDS ORDERED: Aspirin Chewable 81 MG TAB PO SCH (09:00)
[2021-04-12 12:09] LABS: SARS-CoV-2 PCR by NAA Not Detected (NotDetected)
[2021-04-12] MEDS ORDERED: Lidocaine 2% Viscous Solution 10 ML, Aluminum & Magnesium Hydroxide 30 ML SSW SCH (12:30)
[2021-04-12 12:35] VITALS: BP 138/84; TEMP 98.1
[2021-04-12] MEDS ORDERED: ADENOSINE 60 MG/20 ML VIAL ONE (12:58)
== END 2021-04-12 14:05 | disposition home or self-care (01) ==
LOC: ERS 11:53 → 2SW 14:59
PROVIDERS: ADMIT Internal Medicine; ATTEND Internal Medicine
DX: R07.89 Other chest pain (principal); R06.09 Other forms of dyspnea; E78.5 Hyperlipidemia, unspecified; I25.10 Atherosclerotic heart disease of native coronary artery without angina pectoris; I25.5 Ischemic cardiomyopathy; I13.10 Hypertensive heart and chronic kidney disease without heart failure, with stage 1 through stage 4 chronic kidney disease, or unspecified chronic kidney disease; E11.22 Type 2 diabetes mellitus with diabetic chronic kidney disease; N18.30 Chronic kidney disease, stage 3 unspecified; E11.40 Type 2 diabetes mellitus with diabetic neuropathy, unspecified; Z79.02 Long term (current) use of antithrombotics/antiplatelets; Z79.4 Long term (current) use of insulin; Z79.84 Long term (current) use of oral hypoglycemic drugs; Z79.899 Other long term (current) drug therapy; Z95.810 Presence of automatic (implantable) cardiac defibrillator; Z89.422 Acquired absence of other left toe(s); Z20.822 Contact with and (suspected) exposure to COVID-19
CPT/HCPCS: 36415; 36416; 71045; 71275; 78452; 80048; 80053; 80061; 80306; 83690; 83735; 83880; 84443; 84484; 85025; 85379; 93005; 93017; A9500; G0378; J0153; J1815; J3475; Q9967; U0003; U0005

== ENCOUNTER 2021-12-16 10:09 | Emergency (ER) | payer OTHER ==
[2021-12-16 10:45] LABS: #Eosinphils 0.1 thou/uL (0.0-0.7); #Lymphocytes 0.5 thou/uL (1.20-3.40); #Monocytes 0.4 thou/uL (0.11-0.59); #Neutrophils 8.1 thou/uL (1.40-6.50); %Basophils 0.1 % (0.0-1.0); %Eosinophils 0.7 % (0.0-10.0); %Lymphocytes 5.4 % (21.0-51.0); %Monocytes 4.2 % (0.0-10.0); %Neutrophils 89.7 % (42.0-75.0); Hemoglobin 13.9 g/dL (14.0-18.0); Mean Corpuscular HGB CONC 31.5 g/dL (32.0-36.0); Mean Corpuscular Hemoglobin 30.7 pg (27.0-31.0); Mean Corpuscular Volume 97.3 fL (78.0-98.0); Mean Platelet Volume 8.4 fL (7.4-10.4); Platelet Count 181 thou/uL (130-400); RBC Distribution Width 12.8 % (11.5-14.5); Red Blood Cell (RBC) Count 4.54 mill/uL (4.70-6.10)
[2021-12-16 11:10] LABS: ALT (SGPT) 28 U/L (8-55); AST (SGOT) 40 U/L (5-34); Albumin 3.3 g/dL (3.5-5.0); Alkaline Phosphatase 138 U/L (40-110); Anion Gap 15 mmol/L (10-20); BUN (Urea Nitrogen) 14 mg/dL (8.4-25.7); Bilirubin, Total 0.5 mg/dL (0.2-1.2); Calc. Creatinine Clearance 0 mL/min (70-130); Calcium 8.8 mg/dL (7.8-10.44); Carbon Dioxide 25 mmol/L (22-29); Chloride 104 mmol/L (98-107); Globulin 3.7 g/dL (2.4-3.5); Glucose 239 mg/dL (70-105); Potassium 4.4 mmol/L (3.5-5.1); Sodium 140 mmol/L (136-145)
[2021-12-16] MEDS ORDERED: Acetaminophen 500 MG TAB ONE (11:14)
[2021-12-16] MEDS ORDERED: Amoxicillin/Potassium Clav 875 MG TAB ONE (13:37)
== END 2021-12-16 13:33 | disposition home or self-care (01) ==
LOC: ERS 10:09
DX: J18.9 Pneumonia, unspecified organism (principal); H66.91 Otitis media, unspecified, right ear; H72.91 Unspecified perforation of tympanic membrane, right ear; I25.2 Old myocardial infarction; I11.0 Hypertensive heart disease with heart failure; I50.9 Heart failure, unspecified; E11.9 Type 2 diabetes mellitus without complications; E78.5 Hyperlipidemia, unspecified; Z79.84 Long term (current) use of oral hypoglycemic drugs; Z79.899 Other long term (current) drug therapy; Z20.822 Contact with and (suspected) exposure to COVID-19
CPT/HCPCS: 36415; 71045; 80053; 83880; 84484; 85025; 87804; 93005; U0003; U0005

== ENCOUNTER 2022-03-05 09:37 | Emergency (ER) | payer OTHER | END 2022-03-05 11:29 | disposition home or self-care (01) | LOC: ERS 09:37 | DX: J11.1 Influenza due to unidentified influenza virus with other respiratory manifestations (principal); E11.9 Type 2 diabetes mellitus without complications; E78.5 Hyperlipidemia, unspecified; I11.0 Hypertensive heart disease with heart failure; I50.9 Heart failure, unspecified; Z95.0 Presence of cardiac pacemaker | CPT/HCPCS: 99283 ==